=== PATIENT | female | born 1960 | race Caucasian/White ===

== ENCOUNTER → 2017-05-08 | Outpatient (CLI) | payer BC ==
[~2017-05-08] MED LIST: ASPI81TA28 PO; CALCTAB65 PO; CYAN500T13 PO; FRS/40 PO; GLUC750C4 PO; NSP500 PO; OMEGCAP2 PO; PRLSR20 PO; VITA10004 PO
--- NOTE | 2017-05-09 15:59 | MAMMOGRAPHY REPORT ---
BILATERAL DIGITAL SCREENING MAMMOGRAM TOMOSYNTHESIS WITH CAD: 05/08/2017 CLINICAL HISTORY: Routine screening. Patient has no complaints. TECHNIQUE: Breast tomosynthesis in addition to standard 2D mammography was performed. Current study was also evaluated with a Computer Aided Detection (CAD) system. COMPARISON: Comparison is made to exams dated: 02/17/2016 mammogram, 11/03/2014 mammogram, 04/22/2013 m ammogram, 01/22/2012 mammogram, 02/01/2011 ultrasound biopsy, and 01/20/2011 ultrasound - [facility]. BREAST COMPOSITION: The tissue of both breasts is almost entirely fatty. FINDINGS: There is a stable ribbon-shaped biopsy clip in the right breast. No suspicious mass, arch itectural distortion or cluster of microcalcifications is seen. IMPRESSION: ACR BI-RADS CATEGORY 1: NEGATIVE There is no mammographic evidence of malignancy. A 1 year screening mammogram is recommended. The pa tient will receive written notification of the results. Approximately 10% of breast cancers are not detected with mammography. A negative mammographic report should not delay biopsy if a clinically suggestive mass is present. Rozina Davalos M.D. ay/:05/08/2017 16:08:48 Curtain Cutter: Destini Leyva, [facility] letter sent: Normal 1/2 BI-RADS Code: ACR BI-RADS Category 1: Negative
== END | disposition home or self-care (01) ==
LOC: C.MAMM 13:51
PROVIDERS: ATTEND Nurse Practitioner
DX: Z12.31 Encounter for screening mammogram for malignant neoplasm of breast (principal)

== ENCOUNTER → 2017-07-06 | Outpatient (CLI) | payer OTHER ==
--- NOTE | 2017-07-06 12:56 | DIAGNOSTIC IMAGING REPORT ---
BONE SCAN 3 PHASE LIMITED CLINICAL HISTORY: LEFT KNEE PAIN, HX TKA COMPARISON STUDY: Left the x-ray performed February 2010 FINDINGS: The patient was injected with 27.5 mCi of technetium 99m MDP. A vascular sequence centered on the knees was performed. Flow appears symmetric. Blood pool images were unremarkable with the exception of left leg superficial varicosities of a photopenic defect consistent with the patient's left knee arthroplasty. Three-hour delayed images of both lower extremities were performed. There is [id number] increased activity surrounding the tibial component of the left knee arthroplasty. In the proper clinical setting this could indicate aseptic loosening. Clinical correlation in this regard is advocated. IMPRESSION: 1. Increased activity surrounding the tibial component of the patient's left knee arthroplasty. This could indicate loosening and clinical correlation in this regard is advocated Electronically signed by: Ole Rios M.D. 07/06/2017 12:54 PM Dictated Date/Time: 07/06/2017 12:50 PM
[2017-07-06 13:24] LABS: BASO % 0.4 %; BASO ABS # 0.03 K/uL (0-0.2); EOS % 1.5 %; EOS ABS # 0.12 K/uL (0-0.5); HEMOGLOBIN 12.2 g/dL (12.0-16.0); IG# 0.01 K/uL (0.00-0.02); LYMPH % 31.2 %; LYMPH ABS # 2.49 K/uL (1.2-3.4); MEAN CELL VOLUME 87.5 fL (80-100); MEAN CORPUSCULAR HEMOGLOBIN 28.8 pg (25-34); MEAN PLATELET VOLUME 10.6 fL (7.4-10.4); MONO % 4.6 %; MONO ABS # 0.37 K/uL (0.11-0.59); NEUT % 62.2 %; NEUT ABS # 4.95 K/uL (1.4-6.5); PLATELET COUNT 236 K/uL (130-400); RED CELL DISTRIBUTION WIDTH CV 13.9 % (11.5-14.5); RED CELL DISTRIBUTION WIDTH SD 44.2 fL (36.4-46.3); WHITE BLOOD COUNT 7.97 K/uL (4.8-10.8)
== END | disposition home or self-care (01) ==
LOC: C.NUCL 08:44
PROVIDERS: ATTEND Orthopaedic Surgery Sports Medicine
DX: M25.562 Pain in left knee (principal); Z96.652 Presence of left artificial knee joint

== ENCOUNTER 2017-09-14 11:48 | Inpatient (IN) | payer OTHER ==
[2017-08-17 15:12] VITALS: Ht 162.6 cm; Wt 110.6 kg
--- NOTE | 2017-08-17 15:52 | PAT Medication Instructions ---
Service Date Aug 17, 2017. Current Home Medication List Aspirin (Aspirin Ec), 81 MG PO QPM Calcium Carbonate-Vitamin D (Calcium 500 + D), 2 TABS PO QAM Cyanocobalamin (Vitamin B12 500MCG), 500 MCG PO QAM Fish Oil ([place]-3), 2 CAP PO QAM Furosemide (Lasix), 40 MG PO QAM Glucosamine Sulfate (Glucosamine), 1,500 MG PO QAM Meloxicam (Mobic), 15 MG PO QAM Niacin Ext Rel (Niaspan Ext Rel), 1,000 MG PO QPM Omeprazole (Prilosec), 40 MG PO QAM Red Yeast Rice Extract (Red Yeast Rice), 1,200 MG PO QPM Turmeric (Curcuma Longa) (Turmeric), 500 MG PO QAM Vitamin E (E-400), 400 UNITS PO QAM [Zinc], 50 MG PO QAM Medication Instructions For Your Scheduled Surgery -Contact your surgeon for instructions for: Meloxicam (Mobic), 15 MG PO QAM - Hold the following medications 2 weeks prior to surgery: Fish Oil ([place]-3), 2 CAP PO QAM Glucosamine Sulfate (Glucosamine), 1,500 MG PO QAM Red Yeast Rice Extract (Red Yeast Rice), 1,200 MG PO QPM Turmeric (Curcuma Longa) (Turmeric), 500 MG PO QAM Vitamin E (E-400), 400 UNITS PO QAM - Hold the following medications the night before surgery: Niacin Ext Rel (Niaspan Ext Rel), 1,000 MG PO QPM - Hold the following medications the morning of surgery: Calcium Carbonate-Vitamin D (Calcium 500 + D), 2 TABS PO QAM Cyanocobalamin (Vitamin B12 500MCG), 500 MCG PO QAM Furosemide (Lasix), 40 MG PO QAM [Zinc], 50 MG PO QAM - Take the following medications the morning of surgery with a sip of water: Omeprazole (Prilosec), 40 MG PO QAM - Take the following medications as scheduled the night before surgery: Aspirin (Aspirin Ec), 81 MG PO QPM If you have any questions please call us at [phone] or [phone] or [phone]
[2017-08-17 16:05] LABS: BASO % 0.4 %; BASO ABS # 0.03 K/uL (0-0.2); EOS % 2.5 %; EOS ABS # 0.17 K/uL (0-0.5); HEMATOCRIT 36.8 % (37-47); HEMOGLOBIN 12.2 g/dL (12.0-16.0); IG# 0.01 K/uL (0.00-0.02); LYMPH % 36.8 %; LYMPH ABS # 2.54 K/uL (1.2-3.4); MEAN CELL VOLUME 86.8 fL (80-100); MEAN CORPUSCULAR HEMOGLOBIN 28.8 pg (25-34); MEAN CORPUSCULAR HGB CONC 33.2 g/dl (32-36); MEAN PLATELET VOLUME 9.9 fL (7.4-10.4); MONO % 4.9 %; MONO ABS # 0.34 K/uL (0.11-0.59); NEUT % 55.3 %; NEUT ABS # 3.82 K/uL (1.4-6.5); PLATELET COUNT 198 K/uL (130-400); RED CELL DISTRIBUTION WIDTH CV 13.8 % (11.5-14.5); RED CELL DISTRIBUTION WIDTH SD 43.8 fL (36.4-46.3); WHITE BLOOD COUNT 6.91 K/uL (4.8-10.8)
[2017-08-17 16:15] LABS: INR 0.9 (0.9-1.1); PTT PATIENT 23.6 SECONDS (21.0-31.0)
[2017-08-17 16:25] LABS: CALCIUM 8.9 mg/dl (8.5-10.1); CREATININE 0.88 mg/dl (0.60-1.20)
--- NOTE | 2017-08-17 16:26 | DIAGNOSTIC IMAGING REPORT ---
CHEST 2 VIEWS ROUTINE CLINICAL HISTORY: PAT preoperative evaluation COMPARISON STUDY: 05/25/2015 FINDINGS: The bones soft tissues and hemidiaphragms are normal. The cardiomediastinal silhouette is normal. The lungs are clear. The pulmonary vasculature is normal. IMPRESSION: Negative chest. The above report was generated using voice recognition software. It may contain grammatical, syntax or spelling errors. Electronically signed by: Frank Boogie M.D. 08/17/2017 4:25 PM Dictated Date/Time: 08/17/2017 4:25 PM
--- NOTE | 2017-09-06 14:52 | HISTORY & PHYSICAL EXAMINATION ---
DATE OF ADMISSION: 09/14/2017 CHIEF COMPLAINT: Painful left total knee replacement. HISTORY OF PRESENT ILLNESS: Sohan is a 56-year-old female who had her left knee replaced in [address] Bowie. The patient has been complaining of increased pain and instability x1 year. She has failed tramadol, Tylenol, and Mobic. She rates her pain a 10/10. She is now scheduled for a left knee revision. PAST MEDICAL HISTORY: Sleep apnea with CPAP, obesity, positive factor V Leiden, and history of DVT. She denies heart disease or diabetes. PAST SURGICAL HISTORY: x3, left TKA, and left foot reconstruction. SOCIAL HISTORY: The patient drinks alcohol socially. She denies tobacco use. She lives in a 2-story home. 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 FAMILY HISTORY: Positive for factor V in her brother and niece; positive DVT in her mother. MEDICATIONS: Aspirin 81 mg, calcium carbonate 500 mg, vitamin B12 500 mcg, fish oil, furosemide 40 mg, glucosamine 1500 mg, Mobic 15 mg, niacin 1000 mg, omeprazole 40 mg, red yeast rice 1200 mg, turmeric 500 mg, vitamin E 400 units, zinc 50 mg. ALLERGIES: STATINS. REVIEW OF SYSTEMS: See HPI. Ten other systems reviewed, all negative. PHYSICAL EXAMINATION: VITAL SIGNS: Height 5 foot 4 inches, weight 246 pounds, BMI 42. GENERAL: This is a well-developed, well-nourished female who is alert and oriented x3. Mood and affect are appropriate. HEENT: Normocephalic, atraumatic. Mucous membranes are moist and intact. NECK: Supple without lymphadenopathy. HEART: Regular rate and rhythm without murmurs, rubs or gallops. LUNGS: Clear to auscultation without wheezes or rhonchi. ABDOMEN: Soft and nontender. Bowel sounds are equal and active. EXTREMITIES: No ecchymosis, redness or warmth. She has a midline incision. She has moderate joint effusion. She has +2 edema. She has neutral alignment. Range of motion is from 10-95 degrees. She is neurovascularly intact with +5/5 strength. X-RAY EXAMINATION: AP and lateral views show a left total knee replacement with obvious loosening of the femoral component; tibial component appears well fixed at this time. LAB FINDINGS: Bone scan is positive for femoral and potentially tibial loosening. Sed rate is 17.0, CRP is 0.58. IMPRESSION: 1. Aseptic loosening, left total knee replacement. 2. Positive factor V Leiden and history of deep venous thrombosis. PLAN: The patient will be admitted for a left total knee revision with Dr. Bowie and Dr. Mcguire. We will plan on [facility] for home physical therapy upon discharge. We will plan on Lovenox versus Xarelto for DVT prophylaxis.
[~2017-09-14] VITALS: Ht 162.6 cm; Wt 110.6 kg
[~2017-09-14 11:48] MED LIST changes: +ACETAMINOPHEN 500 MG TAB PO SCH; +ATROPINE SULFATE 0.1 MG/ML 5ML SYR IV PRN; +BUPIVACAINE 0.5 % 5 MG/1 ML PF 10ML VIAL ONE; +CEFAZOLIN 2000MG IV PUSH 15 ML IV SCH; +CeleBREX 200 MG CAP PO SCH; +DEXAMETHASONE 4 MG TAB PO SCH; +EpHEDrine SULFATE INJ 50 MG/ML AMP IV PRN; +GABAPENTIN 600 MG PO SCH; +HYDROmorphone INJ 2 MG/ML SYR/VIAL IV PRN; +LACTATED RINGER'S 1000ML 1,000 ML IV SCH; +LACTATED RINGER'S 1000ML 500 ML IV SCH; +MELO7.5T5 PO; +METOCLOPRAMIDE HCL 10 MG TAB PO SCH; +OMEG10007 PO; -OMEGCAP2 PO; +ONDANSETRON INJ 2 MG/ML 2 ML VIAL IV PRN; +PHENYLEPHRINE 100MCG/ML 5ML SYR IV PRN; +RED600TA PO; +ROPIVACAINE 0.5% 5 MG/ML 30 ML VIAL ONE; +ROPIVACAINE 5MG/ML 30 ML 150 MG, BUPIVACAINE 0.5% MPF INJ 30 ML, EpINEphrine HCL INJ 0.... INFIL SCH; +TURM500T PO; +VANCOMYCIN IV 1,750 MG in SODIUM CHLORIDE 0.9% 500ML 500 ML IV SCH; -VITA10004 PO; +VITACAP37 PO; +ZINC PO
[2017-09-14 12:56] VITALS: BP 146/94; PULSE 78; TEMP 36.7; O2SAT 99
--- NOTE | 2017-09-14 14:00 | History & Physical Bridge Note ---
H&P Re-Evaluation Bridge Note: I have examined the patient, reviewed the History & Physical and in the interval since the performance of the History & Physical I have noted the following changes of clinical significance: No changes noted
[2017-09-14] MEDS ORDERED: BUPIVACAINE 0.25% 30 ML VIAL ONE (15:45)
[2017-09-14] MEDS ORDERED: ORTHO JOINT ANESTHETIC ONE (15:56)
[2017-09-14] MEDS ORDERED: POVIDONE-IODINE OP SOLN 30 ML BTL ONE (15:56)
[2017-09-14] MEDS ORDERED: BACITRACIN 50000 UNIT VIAL ONE (15:56)
[2017-09-14] MEDS ORDERED: MIDAZOLAM HCL 1 MG/ML 2ML VIAL ONE ×2 (16:01→17:03)
[2017-09-14] MEDS ORDERED: PROPOFOL IV EMULSION 10 MG/ML 20 ML VIAL IV ONE ×3 (16:40→19:50)
[2017-09-14] MEDS ORDERED: FENTANYL CITRATE INJ 50 MCG/1 ML 2 ML VIAL ONE ×3 (18:36→20:25)
--- NOTE | 2017-09-14 19:40 | [facility] Post Operative Brief Note ---
Immediate Operative Summary Operative Date Sep 14, 2017. Pre-Operative Diagnosis Aseptic loosening left total knee replacement Post-Operative Diagnosis Aseptic loosening left total knee replacement Procedure(s) Performed Revision left total knee arthroplasty Surgeon Dr. Shayla Mooney Template Fitter Surgeon(s) Jeremy Liz PA-C Estimated Blood Loss 100 Findings Consistent with Post-Op Diagnosis Fluids (cc crystalloids) 1800 Specimens Cultures (Stat, Aerobic/Anaerobic, C+S, Gram Stain) 1. Left knee joint fluid - Sent at 1742 2. Left knee synovial tissue - Sent at 1742 3. Left knee intramedullary tibia - Sent at 1802 4. Left knee intramedullary femur - Sent at 1802 Frozen Section FS#1 - Left femur cement bone interface tissue (WBC's with high power field) - Sent at 1742 Permanent A. Explanted hardware left knee Drains None Anesthesia Type MAC Spinal Regional Complication(s) none Disposition Disposition: Recovery Room / PACU
[2017-09-14] MEDS ORDERED: ONDANSETRON INJ 2 MG/ML 2 ML VIAL IV PRN ×2 (19:45→20:30)
[2017-09-14] MEDS ORDERED: MoRPHine SULFATE 4 MG/ML 1 ML CARP\\VIAL IV PRN (19:45)
--- NOTE | 2017-09-14 20:23 | [facility] Operative Report ---
Operative Report Operative Date Sep 14, 2017. Pre-Operative Diagnosis Aseptic loosening left total knee replacement Post-Operative Diagnosis Aseptic loosening left total knee replacement Procedure(s) Performed Revision left total knee arthroplasty Surgeon Dr. Shayla Mooney Gifted Teacher Surgeon(s) Jeremy Liz PA-C Estimated Blood Loss 100 Findings See dictated op note Fluids 1800 Specimens Cultures (Stat, Aerobic/Anaerobic, C+S, Gram Stain) 1. Left knee joint fluid - Sent at 1742 2. Left knee synovial tissue - Sent at 1742 3. Left knee intramedullary tibia - Sent at 1802 4. Left knee intramedullary femur - Sent at 1802 Frozen Section FS#1 - Left femur cement bone interface tissue (WBC's with high power field) - Sent at 1742 Permanent A. Explanted hardware left knee Drains None Anesthesia Type MAC Spinal Regional Complication(s) none Disposition Recovery Room / PACU Indications The patient is a 57-year-old female presents with previous total knee arthroplasty who presented with aseptic loosening of her left total knee as seen on x-ray and bone scan. The patient has significant pain and dysfunction which has failed outpatient conservative treatments including NSAIDs, bracing and physical therapy. The patient's symptoms have progressed to the point where it has been difficult to perform normal activities of daily living. I have indicated the patient for a revision left total knee arthroplasty, the risks and benefits and complications of the procedure include but are not limited to infection bleeding damage to bone, nerves, vessels, surrounding soft tissue, blood clots, loss of function, leg length discrepancy, dislocation, failure of the components, loosening, need for additional surgery and . The patient wished to proceed with surgery at this time and informed consent was obtained. Appropriate clearances were obtained. Description of Procedure Following induction of spinal anesthesia, a tourniquet was applied to the proximal aspect of the thigh and the patient's left leg was prepped and draped in the usual sterile manner. A timeout was performed and site servando verified. Limb was exsanguinated with an esmarch bandage and tourniquet was inflated to 325 mmHg. The prior incision was identified and a longitudinal midline incision was made over the anterior knee. Subcutaneous tissue was sharply dissected down to fascia. Electrocautery was used for hemostasis. Next a parapatellar arthrotomy was performed. Meticulous removal of hypertrophic synovium and scar tissue was removed with Bovie. The patella was everted and the knee was flexed. A bowers retractor was used to expose the synovium above on the anterior aspect of the femur and removed down to bone. Next, the anterior fat pad was removed to aid in visualization. The medial face of the tibia was cleared of soft tissue first with a bovie and a orellana elevator. This tissue was retracted posteriorly using a blunt hohmann. Once adequate access was obtained to the total knee prosthesis we removed the tibial articular surface. Next we turned our attention to the femoral component and utilizing a microsagittal saw loosen the interface between the distal femur component and cement followed by flexible osteotomes. Backslapping distal femur extraction instrument was utilized to remove the distal femur, there was minimal bone loss. Next we turned our attention to the proximal tibia and utilizing the microsagittal saw the tibial component and cement interface was disrupted followed by flexible osteotomes. Utilizing to flat wide osteotomes we were able to lever the component out of the bone. Once again there was minimal bone loss Next we meticulously removed remaining cement and cleared the distal femur proximal tibia and any remaining soft tissue. We gained access to both the intramedullary tibia and femur and intramedullary membrane was scraped with curved curettes. Next sequential intramedullary reaming was performed on both the tibia and the femur starting at size 9 and carried up to a 17 on the tibia and 18 on the femur. Intramedullary reamer was left in the tibia and the T-handle was removed. The proximal tibia cutting guide was attached to the reamer and pinned in place. Intramedullary reamer was removed and the proximal tibia was cut removing minimal bone until there was a flat cut perpendicular to the mechanical axis. We confirmed her current withdrawal brought in spacer block. Next the proximal tibia was assessed and two bent Homans were placed medial and lateral to aid in visualization. The appropriate tibia size and rotation was selected and a size 3 tibial plate was pinned into place with appropriate rotation. Preparation of the tibia was completed utilizing the matching tibial drill and broach. The trial tibial plate was removed and the trial trial size 3 tibia with 17 mm x 75 fluted stem was inserted to the proximal tibia and impacted in place. This provided good fit and fill of the proximal tibia. Next we turned our attention to the distal femur. At this time the tourniquet was dropped at 92 minutes. The appropriate sized distal femur cutting guide was selected and pinned into place. Posterior 5 mm augment cuts were performed both medial and lateral as well as lateral distal femur. Smooth-walled pins were placed through the anterior holes of the femur guide, removal of the distal femur trial and placement of the box guide. Box cut was performed utilizing a reciprocal saw and the pins and box cut guide were removed. The final trial size D LCCK distal femur and 18 x 75 mm fluted stem was inserted. A 12 mm PS tibial articular surface was trialed. We sequentially increased to the articular surface sizes to a 17 mm LCCK and varus-valgus balance assessed in 0 degrees of extension and 30, 60 and 90 degrees of flexion. A final tibial articular surface size 17 LCCK was chosen. Access was gained to the patella and soft tissue fibrous soft tissue surrounding the patella button was removed and the patella cleared of any remaining osteophytes. The patella button was found to be stable and well fixed. The knee was found to be well balanced, well aligned, with excellent patellar tracking. The leg was rewrapped with new Esmarch and tourniquet inflated once again at this time. The trials were removed and final components were obtained and assembled. Aquamantys was utilized for any bleeders and Orthomix injected into the posterior capsule. The knee was irrigated copiously with sterile saline solution mixed with bacitracin. Access to the proximal tibia was once again obtained utilizing to the kaylie and the proximal tibia and distal femur were dried with lap sponges. The final components were cemented into place and all excess cement was removed. A trial tibial articular surface was placed while cemented hardened. Knee stability was once again assessed and the final component inserted. The knee was injected with the remaining Orthomix solution and irrigated once more with sterile saline solution mixed with bacitracin. Hemovac drains 2 were inserted deep to the capsule. The capsulotomy was closed with #1 Vicryl followed by subcutaneous closure with 2-0 Vicryl suture. Skin closure was performed using richard, sterile dressings included Prevena incisional vac. The patient tolerated the procedure well and was taken to the PACU in stable condition. I attest to the content of the Intraoperative Record and any orders documented therein. Any exceptions are noted below.
--- NOTE | 2017-09-14 20:28 | DIAGNOSTIC IMAGING REPORT ---
L KNEE 1 OR 2 VIEWS ROUTINE CLINICAL HISTORY: AP/LATERAL IN PACU LEFT KNEE COMPARISON: None. DISCUSSION: Anatomic alignment status post total left knee revision. Longstem prosthetics are present. Expected soft tissue postoperative change. IMPRESSION: Anatomic alignment status post total left knee arthroplasty. The above report was generated using voice recognition software. It may contain grammatical, syntax or spelling errors. Electronically signed by: Frank Boogie M.D. 09/14/2017 8:27 PM Dictated Date/Time: 09/14/2017 8:26 PM
[2017-09-14] MEDS ORDERED: MEPERIDINE HCL 25 MG/ML CARP IV PRN (20:30)
[2017-09-14] MEDS ORDERED: LABETALOL HCL IV 5 MG/ML 20ML IV PRN (20:30)
[2017-09-14] MEDS ORDERED: ATROPINE SULFATE 0.1 MG/ML 5ML SYR IV PRN (20:30)
[2017-09-14] MEDS ORDERED: FENTANYL CITRATE INJ 50 MCG/1 ML 2 ML VIAL IV PRN (20:30)
[2017-09-14] MEDS ORDERED: HYDROmorphone INJ 0.5 MG/0.5 ML SYR IV PRN (20:30)
[2017-09-14] MEDS ORDERED: EpHEDrine SULFATE INJ 50 MG/ML AMP IV PRN (20:30)
--- NOTE | 2017-09-14 21:03 | Anesthesiology Progress Note ---
Anesthesia Post Op Note Date & Time Sep 14, 2017 at 21:02 Vital Signs Pain Intensity: 0 Vital Signs Past 12 Hours Date Time Temp Pulse Resp B/P (MAP) Pulse Ox O2 Delivery O2 Flow Rate FiO2 09/14/17 21:00 36.4 73 16 119/73 99 Nasal Cannula 4 09/14/17 20:50 75 16 124/78 99 Nasal Cannula 4 09/14/17 20:40 84 16 130/66 96 Nasal Cannula 4 09/14/17 20:30 80 16 126/85 96 Nasal Cannula 4 09/14/17 20:20 84 16 126/85 99 Oxymask 10 09/14/17 20:12 36.4 87 16 138/75 99 Oxymask 10 09/14/17 12:56 36.7 78 18 146/94 99 Room Air Notes Mental Status: alert / awake / arousable, participated in evaluation Pt Amnestic to Procedure: Yes Nausea / Vomiting: adequately controlled Pain: adequately controlled Airway Patency, RR, SpO2: stable & adequate BP & HR: stable & adequate Hydration State: stable & adequate Neuraxial Anesthesia: was administered, sensory block is resolving Anesthetic Complications: no major complications apparent
[2017-09-14 22:17] VITALS: BP 113/76; PULSE 76; TEMP 36.3; O2SAT 100
[2017-09-14] MEDS: DOCUSATE SODIUM 100 MG CAP PO SCH (22:25)
[2017-09-14] MEDS: KETOROLAC TROMETHAMINE 30 MG/ML VIAL IV. SCH (22:26)
[2017-09-14] MEDS: ACETAMINOPHEN 500 MG TAB PO SCH (22:26)
[2017-09-14] MEDS: SENNA 8.6 MG TAB PO SCH (22:26)
[2017-09-14 23:13] VITALS: BP 112/72; PULSE 81; TEMP 36.5; O2SAT 97
[2017-09-15] VITALS (12 sets, daily range): BP systolic 89–132; BP diastolic 55–76; PULSE 57–80; TEMP 36.4–37.1; O2SAT 96–100
[2017-09-15] MEDS: CEFAZOLIN IV 2,000 MG in SYRINGE 0 ML IV SCH ×2 (00:13→08:52)
[2017-09-15] MEDS: SODIUM CHLORIDE 0.9% 1000ML 1,000 ML IV SCH ×3 (03:15→17:30)
[2017-09-15] MEDS: KETOROLAC TROMETHAMINE 30 MG/ML VIAL IV. SCH ×3 (03:15→15:30)
[2017-09-15] MEDS: ACETAMINOPHEN 500 MG TAB PO SCH ×3 (05:38→21:00)
[2017-09-15 07:10] LABS: HEMATOCRIT 31.9 % (37-47); HEMOGLOBIN 10.3 g/dL (12.0-16.0); MEAN CELL VOLUME 86.9 fL (80-100); MEAN CORPUSCULAR HEMOGLOBIN 28.1 pg (25-34); MEAN CORPUSCULAR HGB CONC 32.3 g/dl (32-36); MEAN PLATELET VOLUME 9.6 fL (7.4-10.4); PLATELET COUNT 190 K/uL (130-400); RED CELL DISTRIBUTION WIDTH CV 13.7 % (11.5-14.5); RED CELL DISTRIBUTION WIDTH SD 43.7 fL (36.4-46.3); WHITE BLOOD COUNT 13.57 K/uL (4.8-10.8)
[2017-09-15 07:39] LABS: CALCIUM 8.3 mg/dl (8.5-10.1); CREATININE 0.7 mg/dl (0.60-1.20); POTASSIUM 4.4 mmol/L (3.5-5.1)
[2017-09-15] MEDS: PANTOprazole SOD 40 MG TAB PO SCH (08:48)
[2017-09-15] MEDS: FUROSEMIDE 40 MG TAB PO SCH (08:50)
[2017-09-15] MEDS: RIVAROXABAN 10 MG TAB PO SCH (08:51)
[2017-09-15] MEDS: MULTIVITAMIN TAB PO SCH (08:52)
[2017-09-15] MEDS: OXYCODONE HCL IR 5 MG TAB (IMMEDIATE RELEASE) PO PRN ×3 (08:54→18:29)
--- NOTE | 2017-09-15 08:57 | Orthopedic Progress Note ---
Orthopedic Progress Note Date of Service Sep 15, 2017. Subjective Post OP Day: 1 Reports: feeling well, complaints (mild pain behind the knee this AM), Denies: chest pain, SOB, nausea / vomiting, light headedness, calf pain Additional Notes: Pt sitting up in chair eating breakfast this AM . Pain controlled this AM. Mild pain behind the knee but tolerating well. Objective calves soft nontender, N/V intact, dressing C/D/I, A&O x3, toes mobile, hemovac drainage (350ml latest shift) Date Time Temp Pulse Resp B/P (MAP) Pulse Ox O2 Delivery O2 Flow Rate FiO2 09/15/17 07:40 Room Air 09/15/17 07:10 36.5 57 17 93/58 (70) 99 Room Air 09/15/17 03:50 36.7 65 16 95/55 (68) 99 Nasal Cannula 2.0 112/76 (88) 09/15/17 01:18 70 16 97/63 (74) 97 Nasal Cannula 2.0 09/15/17 00:20 36.4 72 16 94/62 (73) 97 Nasal Cannula 2.0 09/15/17 00:20 Nasal Cannula 2.0 09/14/17 23:13 36.5 81 18 112/72 (85) 97 Nasal Cannula 2.0 09/14/17 22:17 36.3 76 16 113/76 (88) 100 Nasal Cannula 4.0 09/14/17 22:09 Nasal Cannula 4.0 09/14/17 21:14 Nasal Cannula 4.0 09/14/17 21:00 36.4 73 16 119/73 99 Nasal Cannula 4 09/14/17 20:50 75 16 124/78 99 Nasal Cannula 4 09/14/17 20:40 84 16 130/66 96 Nasal Cannula 4 09/14/17 20:30 80 16 126/85 96 Nasal Cannula 4 09/14/17 20:20 84 16 126/85 99 Oxymask 10 09/14/17 20:12 36.4 87 16 138/75 99 Oxymask 10 09/14/17 12:56 36.7 78 18 146/94 99 Room Air Laboratory Results 24 Hours: Test 09/15/17 06:51 Hematocrit 31.9 % Hemoglobin 10.3 g/dL Prothromb Time International Ratio 1.0 Prothrombin Time 10.3 SECONDS Assessment & Plan Assessment: POD 1 s/p Left Revision TKA Plan: PT/OT Planning for HH [facility] upon dc Inhouse Planning Pain Management: Celebrex, Toradol, Morphine, PO Tylenol, Oxy IR DVT Prophylaxis: TEDs, SCDs, ASA Discharge Planning Discharge Planning: home with home health
[2017-09-15] MEDS: DOCUSATE SODIUM 100 MG CAP PO SCH ×2 (10:29→21:00)
[2017-09-15] MEDS: SENNA 8.6 MG TAB PO SCH (21:00)
[2017-09-16] MEDS: OXYCODONE HCL IR 5 MG TAB (IMMEDIATE RELEASE) PO PRN ×2 (04:41→08:35)
[2017-09-16] MEDS: ACETAMINOPHEN 500 MG TAB PO SCH (05:54)
[2017-09-16 06:44] VITALS: BP 103/62; PULSE 62; TEMP 36.6; O2SAT 100
[2017-09-16 07:34] VITALS: BP 103/62; PULSE 62; TEMP 36.6; O2SAT 100
--- NOTE | 2017-09-16 07:54 | Orthopedic Progress Note ---
Orthopedic Progress Note Date of Service Sep 16, 2017. Subjective Post OP Day: 2 Reports: feeling well, Denies: complaints Objective calves soft nontender, N/V intact, dressing C/D/I (Prevena intact), A&O x3, toes mobile Date Time Temp Pulse Resp B/P (MAP) Pulse Ox O2 Delivery O2 Flow Rate FiO2 09/16/17 07:34 36.6 62 16 100 Room Air 09/16/17 07:10 Room Air 09/16/17 06:44 36.6 62 16 103/62 (76) 100 Room Air 09/16/17 00:15 Room Air 09/15/17 22:45 37.1 70 16 101/63 (76) 98 Room Air 09/15/17 19:06 36.6 63 16 109/71 (84) 100 Room Air 09/15/17 18:26 79 132/70 (90) 09/15/17 15:34 63 115/73 (87) 09/15/17 15:25 Room Air 09/15/17 15:00 36.6 71 16 89/61 (70) 98 Room Air 09/15/17 12:54 68 96 09/15/17 12:00 36.5 61 16 105/71 (82) 100 Room Air 09/15/17 09:16 80 105/62 (76) Assessment & Plan Assessment: POD 2 s/p Left Revision TKA Plan: PT/OT Planning for [facility] upon dc DC to home today Inhouse Planning Pain Management: Celebrex, Toradol, Morphine, PO Tylenol, Oxy IR DVT Prophylaxis: TEDs, SCDs, ASA Discharge Planning Discharge Planning: home with home health
[2017-09-16] MEDS ORDERED: SENN-61 PO (07:57)
[2017-09-16] MEDS ORDERED: XRL10 PO (07:57)
[2017-09-16] MEDS ORDERED: ACET-24 PO (07:57)
[2017-09-16] MEDS ORDERED: RXC5 PO (07:57)
[2017-09-16] MEDS ORDERED: CLB200 PO (07:57)
--- NOTE | 2017-09-16 08:02 | Discharge Instructions ---
Discharge Instructions Date of Service Sep 16, 2017. Admission Reason for Admission: Left Failed Total Knee Replacement Discharge Discharge Diagnosis / Problem: Aseptic Loosening Left TKA Discharge Goals Goal(s): Decrease discomfort, Improve function, Increase independence Activity Recommendations Activity Limitations: per Instructions/Follow-up section Weightbearing Status: Left weightbearing (as tolerated) . Instructions / Follow-Up Instructions / Follow-Up ACTIVITY RECOMMENDATIONS: SELF CARE INSTRUCTIONS AFTER TOTAL KNEE REPLACEMENT A. You may need to continue a physical therapy program after discharge from the hospital. There are several options available to you. Your doctor will assist you in selecting the best one for you. 1. An out-patient facility 2 to 3 times a week for therapy or home therapy. 2. Continue working on all exercises taught to you in the hospital. Your goals should be to increase bending of your knee to 90 degrees and beyond and to fully straighten your knee. B. You may progress at your own pace from walking with a walker or crutches to a cane; then to no assistive devices. C. Make walking a part of your daily routine. Be up as much as comfortable with rest periods throughout the day. Rest with leg elevation is very important. Use the ice wrap frequently for the first 3-4 weeks. D. There are no restrictions on activities. You may ride in a car, shop, participate in newspaper reporter and all social activities. E. Wear the long elastic stockings (JOSUE hose) 20 hours a day for 2 weeks after surgery. They can be removed several times a day for laundering and for a bath. F. You may shower, no tub baths until cleared by your doctor. SPECIAL CARE INSTRUCTIONS: VERY IMPORTANT TO READ AND REVIEW A. There are a few signs you need to watch for after you are home. Call [facility] if you notice any of the followin. Increased severe knee pain. Some pain is expected especially when you exercise. 2. Increased swelling in your leg or knee; pain or swelling of the calf muscle in either lower leg. 3. Any fluid drainage from the incision. 4. Shortness of breath or chest pain. B. Please call [facility] at if you have any concerns or questions about your operation or recovery. The doctor or his nurse will return your call promptly. C. You must take antibiotics before dental work, bladder, bowel or other surgery. Your doctor will provide you with a permanent care to carry describing this precaution. IMPORTANT: * YOU WILL BE TAKING XARELTO DAILY. THIS IS YOUR BLOOD THINNER. * CALL IF INCREASED PAIN, REDNESS, DRAINAGE OR FEVER GREATER THAT 101. * WEAR JOSUE HOSE 20 HOURS PER DAY FOR 2 WEEKS. * Prevena- This is a large suction dressing covering your incision. This will help pull any excess drainage from the wound and allow your incision to heal properly. You may shower with this if you can keep the unit outside of the shower. If any bleeding or leakage is noted please call your doctor's office. This will remain on your incision for 7 days and then should be removed. This can be done yourself or by the home nursing staff if applicable. The entire unit is disposable once removed. Once removed, keep incision clean and dry. If redness or drainage is noted, please call your surgeon. . FOLLOW UP VISIT: If appointment is not already scheduled: Please call [facility] to make a follow-up appointment for 2 weeks after your surgery at . Current Hospital Diet Patient's current hospital diet: AHA Diet (Heart Healthy) Discharge Diet Recommended Diet: AHA Diet (Heart Healthy) Procedures Procedures Performed: Revision left total knee arthroplasty Pending Studies Studies pending at discharge: yes List of pending studies: Final cultures pending Medical Emergencies . Who to Call and When: Medical Emergencies: If at any time you feel your situation is an emergency, please call 911 immediately. . Non-Emergent Contact Non-Emergency issues call your: Surgeon Call Non-Emergent contact if: temperature is above 101.5, your pain is not controlled, your pain is worsening, wound has increased drainage, wound has increased redness . "Provider Documentation" section prepared by Jeremy Liz. . [place] Drug Monitoring Program Search Results: patient reviewed within database, no issues identified
[2017-09-16] MEDS: MULTIVITAMIN TAB PO SCH (08:32)
[2017-09-16] MEDS: FUROSEMIDE 40 MG TAB PO SCH (08:32)
[2017-09-16] MEDS: RIVAROXABAN 10 MG TAB PO SCH (08:33)
[2017-09-16] MEDS: DOCUSATE SODIUM 100 MG CAP PO SCH (08:33)
[2017-09-16] MEDS: PANTOprazole SOD 40 MG TAB PO SCH (08:33)
[2017-09-16] MEDS ORDERED: CeleBREX 200 MG CAP PO SCH (09:00)
== END 2017-09-16 11:23 | disposition home health service (06) | DRG 467 ==
LOC: C.ACU 11:48 → C.3E 19:51 → ENRESERV 20:46
PROVIDERS: ADMIT Orthopaedic Surgery; ATTEND Orthopaedic Surgery Sports Medicine
PROC: 0SRD0J9 Replacement of Left Knee Joint with Synthetic Substitute, Cemented, Open Approach (ICD-10-PCS; principal; 2017-09-14 14:10)
PROC: 0SPD0JZ Removal of Synthetic Substitute from Left Knee Joint, Open Approach (ICD-10-PCS; principal; 2017-09-14 14:10)
DX: T84.033A Mechanical loosening of internal left knee prosthetic joint, initial encounter (principal); Z68.41 Body mass index [BMI] 40.0-44.9, adult; D68.51 Activated protein C resistance; G47.30 Sleep apnea, unspecified; E66.9 Obesity, unspecified; Z79.899 Other long term (current) drug therapy; Z79.82 Long term (current) use of aspirin; Z79.1 Long term (current) use of non-steroidal anti-inflammatories (NSAID); Z96.652 Presence of left artificial knee joint; Z86.718 Personal history of other venous thrombosis and embolism; Z83.2 Family history of diseases of the blood and blood-forming organs and certain disorders involving the immune mechanism; Z82.49 Family history of ischemic heart disease and other diseases of the circulatory system; Y83.1 Surgical operation with implant of artificial internal device as the cause of abnormal reaction of the patient, or of later complication, without mention of misadventure at the time of the procedure